=== PATIENT | female | born 1980 | race Caucasian/White ===

== ENCOUNTER 2019-10-22 09:40 | Outpatient (CLI) | payer BC, SELFPAY ==
--- NOTE | 2019-10-22 09:42 | US_ITS ---
WS: [id number] ULTRASOUND ABDOMEN CLINICAL INFORMATION: LOWER ABDOMINAL PAIN COMPARISON: None. FINDINGS: Liver Size: Normal. Craniocaudal length: 15.0 cm. Echogenicity: Normal. Surface nodularity: None. Mass (size and location): Cavernous hemangioma measuring 1.5 x 1.4 x 1.8 cm Bile ducts Intrahepatic ducts: Normal. Common bile duct diameter: 0.5 cm. Gallbladder Normal. Gallstones: None. Gallbladder sludge: None. Gallbladder wall thickening: None. Pericholecystic fluid: None. Sonographic Singleton sign: Absent. Pancreas Normal as visualized. Spleen Splenomegaly: None. Craniocaudal length: 10.7 cm. Right kidney: Normal. Hydronephrosis: None. Size: 9.5 cm x 4.0 cm x 3.6 cm Left kidney: Normal. Hydronephrosis: None. Size: 10.2 cm x 4.6 cm x 5.1 cm. Abdominal aorta and IVC Visualized portions are normal. Ascites: None. US/US abdomen complete* [id number] IMPRESSION: 1. Echogenic lesion in the liver consistent with benign cavernous hemangioma m easuring 1.5 x 1.4 x 1.8 cm 2. Gallbladder and common bile duct are normal. 3. No hydronephrosis in either kidney.
--- NOTE | 2019-10-22 09:42 | US_ITS ---
WS: [id number] ULTRASOUND PELVIS TECHNIQUE: Transabdominal and transvaginal. ULTRASOUND PELVIS TECHNIQUE: Transabdominal. CLINICAL INFORMATION: ABD PAIN LOWER : No. COMPARISON: None. FINDINGS: Uterus Orientation: Anteverted. Size: 9.6 cm x 6.4 cm x 5.2 cm. Masses: None. Cervix: Nabothian cysts Endometrium: Normal. Endometrium thickness: 1.1 cm. Adnexa: Normal. Right ovary size: 3.0 cm x 2.3 cm x 1.7 cm. Right ovary volume: 5.9 ccm3. Left ovary size: 4.9 cm x 2.3 cm x 1.9 cm. Left ovary volume: 11.6 ccm3 Free fluid: Small amount of free fluid in the cul-de-sac Other findings: None. US/US pelvic with transvaginal IMPRESSION: 1. Uterus is normal in appearance with endometrium measuring 11 mm. 2. Both ovaries are normal in appearance. 3. Small amount of free fluid in the cul-de-sac.
== END 2019-10-22 09:41 | disposition home or self-care (01) ==
LOC: RAD 09:41
PROVIDERS: PCP Nurse Practitioner; Visit Provider Nurse Practitioner
DX: R10.30 Lower abdominal pain, unspecified (principal); K76.9 Liver disease, unspecified
CPT/HCPCS: 76700; 76830; 76856